=== PATIENT | male | born 1995 | race Caucasian/White ===

== ENCOUNTER 2019-03-16 18:30 | Inpatient (IN) | payer OTHER ==
[~2019-03-16] VITALS: Ht 167.6 cm; Wt 91.2 kg
--- NOTE | 2019-03-16 18:55 | NUR ---
PT STATES HE BEGAN VOMITTING AROUND PM THIS AFTERNOON, HE THEN NOTICED SOME BRIGHT RED BLOOD AND CLOTS IN THE VOMIT. PT DENIES BLOODY STOOL, CP, SOB. STATES HAVING SOME DIFFUSE RLQ PAIN, NON TENDER TO PALPATION
[2019-03-16] MEDS ORDERED: PANTOPRAZOLE 40 MG IV IVPush ONE (19:00)
[2019-03-16] MEDS ORDERED: FAMOTIDINE 20 MG/2 ML IV ONE (19:00)
[2019-03-16] MEDS ORDERED: SODIUM CHLORIDE FLUSH 10ML SYR IVF ONE (19:00)
[2019-03-16] MEDS ORDERED: SODIUM CHLORIDE 0.9% 1,000ML IVBOLUS ONE ×3 (19:00→22:30)
[2019-03-16] MEDS ORDERED: ONDANSETRON 2MG/ML, 2ML IVPush ONE (19:00)
--- NOTE | 2019-03-16 19:03 | NUR ---
ASSUMED CARE OF PATIENT.
[2019-03-16 19:14] LABS: BASOPHILS # (AUTO) 0.03 x10^3/uL (0-0.1); BASOPHILS % (AUTO) 0 % (0-1); EOSINOPHILS # (AUTO) 0.02 x10^3/uL (0-0.4); EOSINOPHILS % (AUTO) 0 % (1-7); LYMPHOCYTES # (AUTO) 0.46 x10^3/uL (1-3.4); LYMPHOCYTES % (AUTO) 3 % (22-44); MD NO; MEAN CORPUSCULAR HEMOGLOBIN 31.1 pg (27.5-34.5); MEAN CORPUSCULAR HGB CONC 34.4 g/dL (33.2-36.2); MEAN CORPUSCULAR VOLUME 90.5 fL (81-97); MEAN PLATELET VOLUME 8.5 fL (7.4-10.4); MONOCYTES # (AUTO) 0.55 x10^3/uL (0.2-0.8); MONOCYTES % (AUTO) 3 % (2-9); NEUTROPHILS # (AUTO) 15.87 x10^3/uL (1.8-6.8); NEUTROPHILS % (AUTO) 94 % (42-75); PLATELET COUNT 227 x10^3/uL (130-400); RED BLOOD COUNT 6.26 x10^6/uL (4.38-5.82); RED CELL DISTRIBUTION WIDTH 12.4 % (9.4-14.8)
[2019-03-16] MEDS ORDERED: ONDANSETRON 2MG/ML, 2ML ONE (19:16)
[2019-03-16] MEDS ORDERED: PANTOPRAZOLE 40 MG IV ONE (19:16)
[2019-03-16] MEDS ORDERED: FAMOTIDINE 20 MG/2 ML ONE (19:17)
[2019-03-16 19:19] LABS: ALBUMIN 4.8 g/dL (3.4-5.0); ANION GAP 9 mmol/L (5-15); CALCIUM 9.8 mg/dL (8.5-10.1); CHLORIDE 106 mmol/L (98-107)
[2019-03-16 19:23] LABS: ALANINE AMINOTRANSFERASE 42 U/L (12-78); ALKALINE PHOSPHATASE 95 U/L (45-117); BILIRUBIN,TOTAL 1.3 mg/dL (0.2-1.0); TOTAL PROTEIN 8.6 g/dL (6.4-8.2)
--- NOTE | 2019-03-16 19:30 | NUR ---
PIV INITIATED; 20G RT HAND. NS HUNG; ZOFRAN, PEPCID AND PROTONIX GIVEN PER EMAR. EMESIS BAG PROVIDED, SIDE RAILS UP X2, CALL LIGHT W/IN REACH, [id number] IN ROOM. VS MONITORING IN PROGRESS.
--- NOTE | 2019-03-16 20:04 | NUR ---
RESTING COMFORTABLY ON GURNEY, DENIES PAIN & NAUSEA, IV INFUSING W-O. BEAR PAW WARMER PROVIDED.
--- NOTE | 2019-03-16 20:09 | NUR ---
2ND LITER NS HUNG PIGGYBACK. IV SITE PATENT.
--- NOTE | 2019-03-16 21:00 | NUR ---
PT RESTING IN ROOM. VS STABLE. CALL LIGHT IN PLACE. FAMILY AT BEDSIDE. WILL CONTINUE TO MONITOR.
[2019-03-16] MEDS ORDERED: PROCHLORPERAZINE 5 MG/ML, 2ML ONE (21:51)
[2019-03-16] MEDS ORDERED: PROCHLORPERAZINE 5 MG/ML, 2ML IVPush ONE (22:00)
--- NOTE | 2019-03-16 22:06 | NUR ---
PT WAS VOMITING. PT GIVEN COMPAZINE PER DR AGUDELO. PT NOW RESTING IN ROOM. VS STABLE. DR AGUDELO HAS UPDATED PATIENT.
--- NOTE | 2019-03-16 22:37 | NUR ---
PT RESTING IN ROOM WITH EYES CLOSED. FAMILY AT BEDSIDE. VS STABLE. CALL LIGHT IN PLACE. WILL CONTINUE TO MONITOR.
--- NOTE | 2019-03-16 23:19 | NUR ---
PT GIVEN FLUIDS PER DR AGUDELO.
--- NOTE | 2019-03-16 23:41 | NUR ---
PT GIVEN WATER PER DR AGUDELO
--- NOTE | 2019-03-16 23:55 | NUR ---
DR AGUDELO AWRAE OF VS. PT DENIES ABD PAIN. NO NEW ORDERS PER DR AGUDELO. PT IS ABLE TO TOLERATE PO FLUIDS.
--- NOTE | 2019-03-17 00:53 | NUR ---
PT TO BE AN ADMIT. PT REPORTS LOOSE STOOL. PT PLACED ON ISO AND BEDSIDE COMMODE PLACED IN ROOM. DR AGUDELO AWARE. LAW IN ROOM.
--- NOTE | 2019-03-17 00:56 | NUR ---
NO STOOL SAMPLE NEEDED PER DR AGUDELO.
[2019-03-17 01:13] LABS: ANION GAP 9 mmol/L (5-15); CALCIUM 7.8 mg/dL (8.5-10.1); CHLORIDE 112 mmol/L (98-107); CREATININE 1.24 mg/dL (0.7-1.3)
[2019-03-17] MEDS ORDERED: OMNIPAQUE 350 MG/ML, 100ML BOTTLE ONE (01:15)
[2019-03-17] MEDS ORDERED: ONDANSETRON ODT 4 MG PO PRN (01:30)
[2019-03-17] MEDS ORDERED: GUAIFENESIN/DM 200-20MG, 10ML UDC PO PRN (01:30)
[2019-03-17] MEDS ORDERED: POLYETHYLENE GLYCOL 17 GM PACKET PO PRN (01:30)
[2019-03-17] MEDS ORDERED: ONDANSETRON 2MG/ML, 2ML IVPush PRN (01:30)
[2019-03-17] MEDS ORDERED: OXYcodone IR 5MG TABLET PO PRN (01:30)
[2019-03-17] MEDS ORDERED: METOCLOPRAMIDE 5 MG/ML, 2ML IVPush PRN (01:30)
[2019-03-17] MEDS ORDERED: TRAZODONE 50MG TABLET PO PRN (01:30)
--- NOTE | 2019-03-17 01:49 | NUR ---
SPOKE WITH DR ROSARIO. TO ORDER MORE FLUIDS. AWARE OF VS AND PATIENT'S LABS. RISSA (PRIMARY MEDICAL RN) AWARE OF VS AND LABS. REPORT CALLED INTO RISSA RN
[2019-03-17 01:53] VITALS: BP 95/55
[2019-03-17] MEDS: POTASSIUM CHLORIDE 20 MEQ in LACTATED RINGERS 1,000 ML IV SCH ×2 (03:11→12:19)
[2019-03-17 05:14] LABS: BASOPHILS # (AUTO) 0.01 x10^3/uL (0-0.1); BASOPHILS % (AUTO) 0 % (0-1); EOSINOPHILS % (AUTO) 0 % (1-7); LYMPHOCYTES # (AUTO) 0.39 x10^3/uL (1-3.4); LYMPHOCYTES % (AUTO) 4 % (22-44); MD NO; MEAN CORPUSCULAR HGB CONC 34.8 g/dL (33.2-36.2); MEAN CORPUSCULAR VOLUME 91.8 fL (81-97); MEAN PLATELET VOLUME 8.1 fL (7.4-10.4); MONOCYTES # (AUTO) 0.43 x10^3/uL (0.2-0.8); MONOCYTES % (AUTO) 5 % (2-9); NEUTROPHILS # (AUTO) 8.72 x10^3/uL (1.8-6.8); NEUTROPHILS % (AUTO) 91 % (42-75); PLATELET COUNT 203 x10^3/uL (130-400); RED BLOOD COUNT 4.97 x10^6/uL (4.38-5.82); RED CELL DISTRIBUTION WIDTH 12.2 % (9.4-14.8)
[2019-03-17 05:15] LABS: ALBUMIN 3.2 g/dL (3.4-5.0); CALCIUM 7.7 mg/dL (8.5-10.1); CHLORIDE 111 mmol/L (98-107)
[2019-03-17 05:20] LABS: ALANINE AMINOTRANSFERASE 29 U/L (12-78); ALKALINE PHOSPHATASE 56 U/L (45-117); ANION GAP 5 mmol/L (5-15); CREATININE 1.13 mg/dL (0.7-1.3); TOTAL PROTEIN 5.8 g/dL (6.4-8.2)
[2019-03-17 06:34] LABS: CLOSTRIDIUM DIFFICILE ANTIGEN NEGATIVE; CLOSTRIDIUM DIFFICILE TOXIN NEGATIVE (Negative)
[2019-03-17] MEDS: LACTATED RINGERS 1,000 ML IV SCH ×2 (07:00→14:43)
[2019-03-17 07:15] VITALS: BP 95/58
[2019-03-17] MEDS ORDERED: PANTOPRAZOLE 40 MG IV IVPush SCH (07:30)
[2019-03-17 14:00] VITALS: BP 120/75
[2019-03-17] MEDS ORDERED: ONDA4TAB7 PO (15:01)
== END 2019-03-17 17:06 | disposition home or self-care (01) | DRG 392 ==
LOC: ED 20:19 → EDIP 03-17 01:51 → 3N 03-17 02:36
PROVIDERS: ADMIT Family Medicine; ATTEND Family Medicine
DX: A08.4 Viral intestinal infection, unspecified (principal); E87.2 Acidosis; E86.0 Dehydration; M43.06 Spondylolysis, lumbar region; N28.9 Disorder of kidney and ureter, unspecified; D75.1 Secondary polycythemia
CPT/HCPCS: 36415; 84145; J3490; 74177; 80048; 80053; 83605; 83690; 83735; 84100; 85025; 87324; G0378; J2405; J3480; Q9967; C9113; J0780; J7030; J7120